=== PATIENT | female | born 1970 | race Caucasian/White ===

== ENCOUNTER 2018-01-15 05:37 | Emergency (ER) | payer BC ==
--- NOTE | 2018-01-15 05:50 | ER Document Report ---
ED Medical Screen (RME) - General Chief Complaint: Abdominal Pain Stated Complaint: LOWER RIGHT SIDE PAIN Notes: Right lower quadrant abdominal pain for the past 5-6 hours. I have greeted and performed a rapid initial assessment of this patient. A comprehensive ED assessment and evaluation of the patient, analysis of test results and completion of the medical decision making process will be conducted by additional ED providers. TRAVEL OUTSIDE OF THE [place] IN LAST 30 DAYS: No - Related Data Allergies/Adverse Reactions: No Known Allergies Allergy (Unverified 01/15/18 05:44) Physical Exam - Vital signs Vitals: Temp Pulse Resp BP Pulse Ox 98.3 F 94 18 97/73 L 97 01/15/18 05:45 01/15/18 05:45 01/15/18 05:45 01/15/18 05:45 01/15/18 05:45 Course - Vital Signs Vital signs: Temp Pulse Resp BP Pulse Ox 98.3 F 94 18 97/73 L 97 01/15/18 05:45 01/15/18 05:45 01/15/18 05:45 01/15/18 05:45 01/15/18 05:45
[2018-01-15 06:23] LABS: ABSOLUTE LYMPHOCYTES (AUTO) 0.3 10^3/uL (0.5-4.7); ABSOLUTE MONOCYTES (AUTO) 0.5 10^3/uL (0.1-1.4); ABSOLUTE NEUT (AUTO) 5.4 10^3/uL (1.7-8.2); BASOPHILS % (AUTO) 0.3 % (0-2); EOSINOPHILS % (AUTO) 0.7 % (0-6); HEMATOCRIT 36.7 % (36.0-47.0); HEMOGLOBIN 12.4 g/dL (12.0-15.5); LYMPHOCYTES % (AUTO) 5.5 % (13-45); MEAN CORPUSCULAR HEMOGLOBIN 29.6 pg (27.0-33.4); MEAN CORPUSCULAR HGB CONC 33.9 g/dL (32.0-36.0); MEAN CORPUSCULAR VOLUME 87 fl (80-97); MONOCYTES % (AUTO) 7.5 % (3-13); PLATELET COUNT 239 10^3/uL (150-450); RED CELL DISTRIBUTION WIDTH 13.5 % (11.5-14.0); TOTAL CELLS COUNTED % (AUTO) 100 %; WHITE BLOOD COUNT 6.3 10^3/uL (4.0-10.5)
--- NOTE | 2018-01-15 06:25 | ER Document Report ---
ED General - General Chief Complaint: Abdominal Pain Stated Complaint: LOWER RIGHT SIDE PAIN Time Seen by Provider: 01/15/18 05:50 Mode of Arrival: Ambulatory Information source: Patient Notes: 47-year-old female presents emergency department with complaints of right lower quadrant abdominal pain for the last 5 hours. Patient states that it is a constant pain. She describes it as an aching sensation. No radiation of the pain. No alleviating or exacerbating factors. Patient has had associated chills and nausea. Patient denies vomiting, diarrhea, constipation, dysuria, hematuria, vaginal bleeding, vaginal discharge. Currently on menstrual cycle. Patient denies any surgeries on her abdomen. TRAVEL OUTSIDE OF THE [place] IN LAST 30 DAYS: No - HPI Onset: Other - 5 hours Onset/Duration: Sudden Quality of pain: Achy Severity: Moderate Associated symptoms: Chills, Nausea Exacerbated by: Denies Relieved by: Denies Similar symptoms previously: No Recently seen / treated by doctor: No - Related Data Allergies/Adverse Reactions: No Known Allergies Allergy (Unverified 01/15/18 05:44) Past Medical History - Social History Smoking Status: Never Smoker Family History: Reviewed & Not Pertinent Review of Systems - Review of Systems Constitutional: Chills EENT: No symptoms reported Cardiovascular: No symptoms reported Respiratory: No symptoms reported Gastrointestinal: Abdominal pain, Nausea Genitourinary: No symptoms reported Female Genitourinary: No symptoms reported Musculoskeletal: No symptoms reported Skin: No symptoms reported Hematologic/Lymphatic: No symptoms reported Neurological/Psychological: No symptoms reported -: Yes All other systems reviewed and negative Physical Exam - Vital signs Vitals: Temp Pulse Resp BP Pulse Ox 98.3 F 94 18 97/73 L 97 01/15/18 05:45 01/15/18 05:45 01/15/18 05:45 01/15/18 05:45 01/15/18 05:45 - General Notes: PHYSICAL EXAMINATION: GENERAL: Well-appearing, well-nourished and in no acute distress. HEAD: Atraumatic, normocephalic. EYES: Pupils equal round and reactive to light, extraocular movements intact, conjunctiva are normal. ENT: Nares patent, oropharynx clear without exudates. Moist mucous membranes. NECK: Normal range of motion, supple without lymphadenopathy LUNGS: Breath sounds clear to auscultation bilaterally and equal. No wheezes rales or rhonchi. HEART: Regular rate and rhythm without murmurs ABDOMEN: Soft, tenderness to palpation in the RLQ and suprapubic area. No rebound or guarding. Female : deferred Musculoskeletal: Normal range of motion, no pitting or edema. No cyanosis. NEUROLOGICAL: Cranial nerves grossly intact. Normal speech, normal gait. Normal sensory, motor exams PSYCH: Normal mood, normal affect. SKIN: Warm, Dry, normal turgor, no rashes or lesions noted. Course - Re-evaluation Re-evalutation: 01/15/18 08:19 White blood cell count is normal. Patient is afebrile. Patient has tenderness to palpation in the RLQ. She denies vaginal discharge. Denies concern for STDs. Currently on menstrual cycle. Patient declines pelvic exam or pelvic US. CT abdomen and pelvis was done to evaluate for appendicitis as the patient is having tenderness to palpation in [place]Burneys point. CT does not show a well delineated appendix. I reevaluated the patient. She states that she is feeling better. Not tender on exam in the RLQ anymore. I discussed the CT report with her. I told her that we need to do a pelvic exam to further evaluate the pain. Patient declines pelvic exam/pelvic US. I told her that she needs to return to the emergency department if she begins having fevers or has worsening right lower quadrant pain. I told her that if symptoms are worsening she will need a reevaluation of her abdomen by a physician. I instructed her to take OTC medication for pain, to follow up with her PCP this week, and to return for worsening symptoms. - Vital Signs Vital signs: Temp Pulse Resp BP Pulse Ox 98.3 F 94 18 97/73 L 97 01/15/18 05:45 01/15/18 05:45 01/15/18 05:45 01/15/18 05:45 01/15/18 05:45 - Laboratory Result Diagrams: 01/15/18 06:00 01/15/18 06:00 Laboratory results interpreted by me: 01/15/18 01/15/18 06:00 06:00 Seg Neutrophils % 86.0 H Lymphocytes % 5.5 L Absolute Lymphocytes 0.3 L Carbon Dioxide 21 L Discharge - Discharge Clinical Impression: Abdominal pain Qualifiers: Abdominal location: right lower quadrant Qualified Code(s): R10.31 - Right lower quadrant pain Condition: Good Disposition: HOME, SELF-CARE Instructions: Observation for Appendicitis ([facility]), Abdominal Pain ([facility]) Prescriptions: Ondansetron [Zofran Odt 4 mg Tablet] 1 tab PO Q4H PRN #15 tab.rapdis PRN Reason: For Nausea/Vomiting Referrals: RENETTA PECK DO [NO LOCAL MD] - Follow up as needed
[2018-01-15 06:39] LABS: ALANINE AMINOTRANSFERASE 20 U/L (9-52); ALBUMIN 3.7 g/dL (3.5-5.0); ALKALINE PHOSPHATASE 64 U/L (38-126); ANION GAP 12 (5-19); ASPARTATE AMINO TRANSFERASE 22 U/L (14-36); BILIRUBIN,DIRECT 0.1 mg/dL (0.0-0.4); BILIRUBIN,TOTAL 0.5 mg/dL (0.2-1.3); BLOOD UREA NITROGEN 12 mg/dL (7-20); CARBON DIOXIDE 21 mmol/L (22-30); CHLORIDE 106 mmol/L (98-107); GLUCOSE 108 mg/dL (75-110); POTASSIUM 4.5 mmol/L (3.6-5.0); SODIUM 138.6 mmol/L (137-145); TOTAL PROTEIN 6.4 g/dL (6.3-8.2)
[2018-01-15 07:04] LABS: APPEARANCE,URINE CLEAR; BILIRUBIN,URINE NEGATIVE (NEGATIVE); COLOR,URINE YELLOW; GLUCOSE, URINE NEGATIVE (NEGATIVE); KETONES,URINE NEGATIVE (NEGATIVE); LEUKOCYTE ESTERASE,URINE NEGATIVE (NEGATIVE); NITRITE,URINE NEGATIVE (NEGATIVE); PROTEIN,URINE NEGATIVE (NEGATIVE); URINE SPECIFIC GRAVITY 1.015; UROBILINOGEN,URINE NEGATIVE mg/dL (<2.0)
[2018-01-15] MEDS ORDERED: MORPHINE SULFATE 10 MG/ML INJ IV ONE (07:52)
[2018-01-15] MEDS ORDERED: ONDANSETRON 4 MG TAB.RAPDIS PO ONE (07:52)
--- NOTE | 2018-01-15 08:07 | RADIOLOGY REPORT (SQ) ---
CLINICAL DATA: 47-year-old female with right lower quadrant abdominal pain TECHNICAL DATA: Axial CT imaging of the abdomen and pelvis was performed following the administration of intravenous contrast.. Sagittal and coronal reconstructed images were then performed. The CT study is performed according to ALARA (as low as reasonably achievable) or ALARA/IMAGE GENTLY, with automatic adjustment of mA and/or kV according to patient size. Comparison: None FINDINGS: Lung bases: The lung bases are clear. Liver:The liver is normal in size and configuration. No focal hepatic abnormalities are identified. Liver attenuation is within normal limits. Spleen:The spleen is normal is size, configuration and attenuation. Gallbladder and bile duct: The gallbladder is well distended and unremarkable. There is no biliary ductal dilatation. Pancreas: The pancreas is grossly normal in size and configuration. Adrenal Glands:The adrenal glands are normal in size and configuration. Kidneys:The kidneys are normal in size and configuration. There is no evidence of hydronephrosis. There is a 2 mm nonobstructing calcification in the midpole of the right kidney. No definite solid or cystic renal mass lesions are identified. Stomach:The stomach is grossly normal. There is no definite hiatal hernia. Bowel:The bowel gas pattern is non specific and non obstructive. Appendix: The appendix is not clearly delineated on this examination. Free air:There is no evidence of free air. Free fluid: There is no evidence of free fluid. Vasculature: The aorta is normal in caliber and contour. The inferior vena cava is grossly unremarkable. Lymphadenopathy: No pathologic lymphadenopathy is identified. Bladder: The bladder is well distended and smooth in contour. Reproductive: The uterus is grossly within normal limits. Bones: No acute osseous abnormalities are identified. Soft tissues: No focal soft tissue abnormalities are identified. IMPRESSION: 1. No evidence of acute intra-abdominal or intrapelvic pathology. 2. The appendix is not clearly delineated on this examination. 3. 2 mm nonobstructing calcification in the midpole of the right kidney.
--- NOTE | 2018-01-15 09:23 | RADIOLOGY REPORT (SQ) ---
EXAM DESCRIPTION: U/S NON OB PEL TV W/DOPPLER COMPLETED DATE/TIME: 01/15/2018 9:13 am REASON FOR STUDY: R ovarian pain COMPARISON: None. TECHNIQUE: Dynamic and static grayscale images acquired of the pelvis via transvaginal approach and recorded on PACS. Additional selected color Doppler and spectral images recorded. LIMITATIONS: None. FINDINGS: UTERUS: Contour normal. No mass. ENDOMETRIAL STRIPE: No focal or generalized thickening. No masses. CERVIX: No nabothian cysts. RIGHT OVARY AND DOPPLER: Normal size. No worrisome masses. Normal arterial vascular flow without evid ence for torsion. LEFT OVARY AND DOPPLER: Normal size. No worrisome masses. Normal arterial vascular flow without evide nce for torsion. FREE FLUID: Trace free fluid. OTHER: No other significant finding. MEASUREMENTS: UTERUS: 3.7 x 4.4 x 8.1 cm. ENDOMETRIAL STRIPE: 4 mm. RIGHT OVARY: 1.9 x 2.1 x 3.7 cm. LEFT OVARY: 2 x 2.3 x 3.3 cm. IMPRESSION: NORMAL TRANSVAGINAL PELVIC ULTRASOUND. TECHNICAL DOCUMENTATION: JOB ID: [id number]- All Rights Reserved Rev Reading location - IP/workstation name: [email or web address]
[2018-01-15 11:02] VITALS: BP 108/86
== END 2018-01-15 11:03 | disposition home or self-care (01) ==
LOC: ER 05:37
DX: R10.31 Right lower quadrant pain (principal); R68.83 Chills (without fever); R11.0 Nausea
CPT/HCPCS: 99284; 96374; 36415; 84703; 85025; 80053; 81001; 76830; 93976; 74177; S0119; J2270